=== PATIENT | male | born 1935 | race Caucasian/White ===

== ENCOUNTER 2020-04-01 01:07 | Emergency (ER) | payer MEDICARE, OTHER ==
--- NOTE | 2020-04-01 01:40 | EDM.PDOC ---
ED HPI GENERAL MEDICAL PROBLEM - General Chief Complaint: Laceration Stated Complaint: FALL Time Seen by Provider: 04/01/20 01:38 Source of Information: Reports: Patient History Limitations: Reports: Other (Hard of hearing) - History of Present Illness INITIAL COMMENTS - FREE TEXT/NARRATIVE: Patient presents with a friend for evaluation of a laceration sustained to the right supraorbital region after he tripped and fell in a parking lot tonight. No alcohol was involved and there are no other reasons for him to fall apart from tripping. There was minor bleeding at the time. Friend with him told him he needed to go to the hospital because he needed stitches. He is also complaining of pain to his left thumb region. Onset: Today, Sudden Duration: Hour(s): (1) Location: Reports: Face, Upper Extremity, Left Quality: Reports: Ache Severity: Mild Improves with: Reports: None Worsens with: Reports: Movement Associated Symptoms: Reports: No Other Symptoms body pain due to arthritis Pain Score (Numeric/FACES): 7 - Related Data Allergies Allergy/AdvReac Type Severity Reaction Status Date / Time celecoxib [From Celebrex] Allergy Cannot Verified 04/01/20 01:30 Remember codeine Allergy Cannot Verified 04/01/20 01:30 Remember Home Meds: Home Meds Aspirin [Lo-Dose Aspirin EC] 81 mg PO DAILY 04/01/20 [History] Social & Family History - Tobacco Use Tobacco Use Status *Q: Never Tobacco User - Caffeine Use Caffeine Use: Reports: Soda - Recreational Drug Use Recreational Drug Use: No ED ROS GENERAL - Review of Systems Review Of Systems: See Below Constitutional: Denies: Malaise, Weakness Respiratory: Reports: No Symptoms Cardiovascular: Reports: No Symptoms Musculoskeletal: Reports: Hand Pain Skin: Reports: Wound ED EXAM, SKIN/RASH Exam: See Below Text/Narrative:: This is a quiet adult male examined in room 3. He is quite hard of hearing. Exam Limited By: No Limitations General Appearance: Alert, No Apparent Distress Eye Exam: Right Eye: Periorbital Changes (Several lacerations), Bilateral Eye: EOMI, PERRL Ears: Normal External Exam Nose: Normal Inspection Respiratory/Chest: No Respiratory Distress Extremities: Other (Pain on palpation of the entire left thumb but in particular the IP joint.) ED SKIN PROCEDURES - Laceration/Wound Repair Right Upper Lateral Face Appearance: Subcutaneous, Clean Distal NVT: Neuro & Vascular Intact Anesthetic Type: Local Local Anesthesia - Lidocaine (Xylocaine): 1% with EPI Local Anesthetic Volume: 2cc Skin Prep: Saline Saline Irrigation (cc's): 10 Exploration/Debridement/Repair: Wound Explored, Explored to Base, No Foreign Material Found Closed with: Sutures Lac/Wound length In cm: 4 (Into separate right periorbital laceration locations) Suture Size: 4-0 # of Sutures: 7 Suture Type: Prolene Drain Placement: No Tetanus Status Addressed: Yes Complications: No Progress/Comments: There was a small pinhole puncture at the lateral aspect of the right eyelid which could not be sutured but which steadily dripped bloody fluid. A silver nitrate stick was used to cauterize the opening and there was no further drainage. Course - Vital Signs Last Recorded V/S: Last Vital Signs Temp 37.0 C 04/01/20 01:29 Pulse 84 04/01/20 01:29 Resp 15 04/01/20 01:29 BP 130/67 04/01/20 01:29 Pulse Ox 98 04/01/20 01:29 - Orders/Labs/Meds Orders: Active Orders 24 hr Category Date Time Status Fingers Thumb Lt FA [CR] Stat Exams 04/01/20 02:47 Taken Meds: Medications Discontinued Medications Generic Name Dose Route Start Last Admin Trade Name Rashard PRN Reason Stop Dose Admin Lidocaine/Epinephrine 3 ml 04/01/20 01:45 04/01/20 03:48 Xylocaine 1% With Epinephrine 1:100,000 INFILT 3 ml ASDIRECTED ELIZABETH Administration Silver Nitrate 1 each 04/01/20 02:40 04/01/20 03:47 Silver Nitrate TOP 04/01/20 02:41 1 each ONETIME ONE Administration - Re-Assessments/Exams Free Text/Narrative Re-Assessment/Exam: 04/01/20 05:09 The lacerations in the right periorbital region were repaired, see wound repair section of the note. X-ray of the left thumb shows a small avulsion fracture of the IP joint. This was placed in padded thumb splint. He should have the sutures removed in 6 to 7 days. We discussed pain medicine options for his thumb in the context of his daily rheumatoid arthritis pain. He has experimented through his primary care team with a number of additional pain medications but nothing seems to provide him much additional relief. I recommend Tylenol 1000 mg 3 times a day. He should avoid flexing the thumb. Return to ER if feeling worse in any way prior to returning home. Departure - Departure Time of Disposition: 03:17 Disposition: Home, Self-Care 01 Clinical Impression: Laceration of periorbital area Qualifiers: Encounter type: initial encounter Qualified Code(s): S01.81XA - Laceration with out foreign body of other part of head, initial encounter Fracture of thumb, left, closed Qualifiers: Encounter type: initial encounter Phalanx: proximal Fracture alignment: nondisplaced Qualified Code(s): S62.515A - Nondisplaced fracture of proximal phalanx of left thumb, initial encounter for closed fracture - Discharge Information Instructions: Finger Fracture, Adult, [id number], Laceration Care, Adult, [id number], Sutured Wound Care, [id number] Referrals: PCP,None [Primary Care Provider] - Forms: ED Department Discharge Additional Instructions: Stitches, 7 of them, can be removed next Thursday, or a day or 2 after. You will likely have itching in the area where the lacerations are. If there is dried blood around the stitches it is okay to leave it there. In 24 hours you could get your head wet in the shower but do not scrub over the stitched area. The joint of the left thumb has a small piece of bone that has been pulled off. Use the splint to keep from bending the thumb. Use Tylenol 1000 mg 3 times a day for the thumb pain. Follow-up with your primary care team when you return home. Sepsis Event Note (ED) - Evaluation Sepsis Screening Result: No Definite Risk - Focused Exam Vital Signs: Vital Signs Temp Pulse Resp BP Pulse Ox 04/01/20 01:29 37.0 C 84 15 130/67 98 04/01/20 01:26 37.0 C 15 130/67 98 - My Orders Last 24 Hours: My Active Orders 04/01/20 02:47 Fingers Thumb Lt FA [CR] Stat - Assessment/Plan Last 24 Hours: My Active Orders 04/01/20 02:47 Fingers Thumb Lt FA [CR] Stat
[2020-04-01] MEDS ORDERED: Lidocaine 1% with EPINEPHrine 1:100,000 50 ML MDV INFILT SCH (01:45)
[2020-04-01] MEDS ORDERED: Silver Nitrate Applicator Each TOP ONE (02:40)
--- NOTE | 2020-04-02 10:00 | CR ---
Fingers Thumb Lt FA CLINICAL HISTORY: Trauma, pain FINDINGS: There is a marginal articular fracture at the base of the first distal phalanx IMPRESSION: Fracture base of first distal phalanx
== END 2020-04-01 03:55 | disposition home or self-care (01) ==
LOC: JP.ED 01:07
DX: S62.522A Displaced fracture of distal phalanx of left thumb, initial encounter for closed fracture (principal); S01.111A Laceration without foreign body of right eyelid and periocular area, initial encounter; Z88.5 Allergy status to narcotic agent; Z79.82 Long term (current) use of aspirin; W01.0XXA Fall on same level from slipping, tripping and stumbling without subsequent striking against object, initial encounter; Y92.481 Parking lot as the place of occurrence of the external cause
CPT/HCPCS: 12013; 73140-26-FA; 73140-FA; 99283-25